=== PATIENT | male | born 1965 | race Caucasian/White ===

== ENCOUNTER 2022-01-24 05:35 | Day surgery (SDC) | payer MEDICARE ==
[2022-01-24] MEDS ORDERED: LACTATED RINGERS 1,000 ML ONE (06:15)
[2022-01-24] MEDS ORDERED: LIDOCAINE MPF (2%) 20 MG/1 ML VIAL 5 ML ONE (07:22)
[2022-01-24] MEDS ORDERED: MIDAZOLAM 2 MG/2 ML INJ ONE (07:22)
[2022-01-24] MEDS ORDERED: ONDANSETRON 4 MG/2 ML INJ ONE (07:22)
[2022-01-24] MEDS ORDERED: dexAMETHasone 20 MG/5 ML VIAL ONE (07:22)
[2022-01-24] MEDS ORDERED: propofoL 200 MG/20 ML VIAL IV ONE (07:23)
[2022-01-24] MEDS ORDERED: fentaNYL 100 MCG/2 ML INJ ONE (07:23)
--- NOTE | 2022-01-24 07:40 | Anesthesia Day of Surgery ---
Anesthesia Day of Surgery - Day of Surgery Patient Examined: Yes Patient H&P Reviewed: Yes Patient is NPO: Yes
[2022-01-24] MEDS ORDERED: HYDROmorphone 1 MG/1 ML INJ IV PRN ×2 (07:41)
[2022-01-24] MEDS ORDERED: ONDANSETRON 4 MG/2 ML INJ IV PRN (07:41)
--- NOTE | 2022-01-24 07:41 | Anesthesia Consultation ---
Anesthesia Consult and Med Hx Date of service: 01/24/22 - Airway Anesthetic Teeth Evaluation: Good ROM Head & Neck: Adequate Mental/Hyoid Distance: Adequate Mallampati Class: Class II Intubation Access Assessment: Good - Pre-Operative Health Status ASA Pre-Surgery Classification: ASA2 Proposed Anesthetic Plan: General - Pulmonary Hx Smoking: No Hx Sleep Apnea: No (IRON PRE SCREEN LOW RISK) - Cardiovascular System Hx Hypertension: No - Central Nervous System Hx Psychiatric Problems: Yes (Depression/Schizophrenia) - Gastrointestinal Hx Gastroesophageal Reflux Disease: No - Hematic Hx Anemia: No - Other Systems Hx Cancer: No Hx Obesity: No
[2022-01-24] MEDS ORDERED: MAGNESIUM OXIDE 400 MG TAB PO ONE (07:42)
[2022-01-24] MEDS ORDERED: LACTATED RINGERS 1,000 ML IV SCH (08:00)
[2022-01-24] MEDS ORDERED: ceFAZolin/STERILE WATER 2 GM/20 ML SYRINGE IV NR (08:00)
[2022-01-24] MEDS ORDERED: CELECOXIB 200 MG CAP PO NR (08:00)
[2022-01-24] MEDS ORDERED: GABAPENTIN 300 MG CAP PO NR (08:00)
[2022-01-24] MEDS ORDERED: ACETAMINOPHEN 500 MG TAB PO NR (08:00)
[2022-01-24] MEDS ORDERED: HYDROmorphone 1 MG/1 ML INJ ONE (08:44)
[2022-01-24] MEDS ORDERED: SODIUM CHLORIDE 0.9% IRR 1,500 ML BOTTLE IR ONE (08:45)
--- NOTE | 2022-01-24 09:01 | Short Stay Summary ---
Short Stay Documentation Date of service: 01/17/22 - History H&P: obtained from office - Allergies and Medications Current Medications: Allergies No Known Allergies Allergy (Verified 01/16/22 11:16) Home Medications Medication Instructions Recorded Confirmed Last Taken Type Aripiprazole Lauroxil,Submicr. 675 mg IM [id number] 01/17/22 01/17/22 Unknown History [[place] Initio] Benztropine [Cogentin] 1 mg PO BID 01/17/22 01/24/22 01/21/22 09:00 History Active Medications Hydromorphone HCl (Hydromorphone 1 Mg/1 Ml Inj) 0.25 mg IV Q10MIN PRN PRN Reason: Pain, Moderate (4-6) Stop: 01/24/22 20:00 Hydromorphone HCl (Hydromorphone 1 Mg/1 Ml Inj) 0.5 mg IV Q10MIN PRN PRN Reason: Pain , Severe (7-10) Stop: 01/24/22 20:00 Lactated Ringer's (Lactated Ringers) 1,000 mls @ 125 mls/hr IV DIRECT MARIE Last Admin: 01/24/22 06:30 Dose: 125 mls/hr - Brief post op/procedure progress note Date of procedure: 01/24/22 Pre-op diagnosis: phimosis Post-op diagnosis: same Procedure: circ Anesthesia: GETA Surgeon: MAEGAN JOSUE Estimated blood loss: minimal Pathology: list Specimen disposition: to lab Condition: stable - Hospital course Hospital course: norco - Disposition Condition at discharge: Stable Disposition: 01 HOME / SELF CARE / HOMELESS Short Stay Discharge Plan Follow up with: ALEKSANDR SALCIDO MD [Primary Care Provider] - 7 Days
--- NOTE | 2022-01-24 09:48 | Operative Report ---
DATE OF SURGERY: 01/24/2022 PREOPERATIVE DIAGNOSIS: Phimosis. POSTOPERATIVE DIAGNOSIS: Phimosis. PROCEDURE: Circumcision. SURGEON: Ryan Bains MD ANESTHESIA: General. ESTIMATED BLOOD LOSS: Minimal. FLUIDS: Crystalloid. COMPLICATIONS: No complications. INDICATIONS: This patient is a 56-year-old gentleman seen in the office for erectile dysfunction and phimosis. Exam was consistent with phimosis. Risks, benefits, complications were explained. The patient agreed to proceed with surgical intervention. DESCRIPTION OF PROCEDURE: The patient was taken to the operative suite, placed in the supine position. After adequate general anesthesia, he was prepped and draped in a sterile fashion. His foreskin was marked at the level of the coronal ridge. Dorsal and ventral slit was made. Foreskin was circumferentially removed and sent for routine pathologic evaluation. Shaft skin was retracted. Adequate hemostasis was achieved. The proximal and distal shaft skin was reapproximated and closed with 2-0 chromic in interrupted fashion. Xeroform gauze was placed on the incision. Jeff and Coban was placed as well. The patient tolerated the procedure well and was extubated and taken to recovery room and go home on [place] and follow up in the office. TID: [id number] RECEIPT: [id number] [facility]
--- NOTE | 2022-01-24 13:13 | Post Anesthesia Evaluation ---
- Post Anesthesia Evaluation Patient Participated: Yes Airway Patent: Yes Stable Respiratory Function: Yes Nausea/Vomiting: No Temp > 96.8F: Yes Pain Manageable: Yes Adequeate Hydration: Yes Anesthesia Complications: No Block Receding Appropriately: Not Applicable Patient on Ventilator: No
[2022-01-24 18:11] VITALS: BP 138/75
== END 2022-01-24 17:50 | disposition home or self-care (01) ==
LOC: OR 05:35
PROVIDERS: ATTEND Urology
DX: N47.1 Phimosis (principal); F32.9 Major depressive disorder, single episode, unspecified; Z20.822 Contact with and (suspected) exposure to COVID-19; Z79.899 Other long term (current) drug therapy; Z98.49 Cataract extraction status, unspecified eye; Z98.890 Other specified postprocedural states
CPT/HCPCS: 54161; 88304; J0690; J1100; J1170; J2250; J2405; J2704; J3010; J3490; J7120; U0003